=== PATIENT | male | born 1970 | race Caucasian/White ===

== ENCOUNTER 2017-08-30 22:37 | Emergency (ER) | payer OTHER | END 2017-08-30 23:02 | disposition home or self-care (01) | LOC: SCSER 22:37 | DX: S76.311A Strain of muscle, fascia and tendon of the posterior muscle group at thigh level, right thigh, initial encounter (principal); I10 Essential (primary) hypertension; J45.909 Unspecified asthma, uncomplicated; X50.1XXA Overexertion from prolonged static or awkward postures, initial encounter; Y93.67 Activity, basketball | CPT/HCPCS: 99283 ==

== ENCOUNTER 2019-04-27 10:43 | Emergency (ER) | payer OTHER ==
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
[2019-04-27] MEDS ORDERED: Ketorolac Tromethamine 30 MG/ML VIAL ONE (11:51)
== END 2019-04-27 12:19 | disposition home or self-care (01) ==
LOC: ERS 10:43
DX: S16.1XXA Strain of muscle, fascia and tendon at neck level, initial encounter (principal); V89.2XXA Person injured in unspecified motor-vehicle accident, traffic, initial encounter; J45.909 Unspecified asthma, uncomplicated; I10 Essential (primary) hypertension; F32.9 Major depressive disorder, single episode, unspecified; Z79.899 Other long term (current) drug therapy; Z79.51 Long term (current) use of inhaled steroids
CPT/HCPCS: 70450; 72125; 96374; J1885

== ENCOUNTER 2020-03-07 23:32 | Emergency (ER) | payer OTHER ==
[2020-03-08] MEDS ORDERED: Fluorescein Opthalmic Strip ONE
[2020-03-08] MEDS ORDERED: Proparacaine 0.5% Opth 15 ML BOT ONE
== END 2020-03-08 00:20 | disposition home or self-care (01) ==
LOC: ERS 23:32
DX: S05.01XA Injury of conjunctiva and corneal abrasion without foreign body, right eye, initial encounter (principal); J45.909 Unspecified asthma, uncomplicated; I10 Essential (primary) hypertension; F32.9 Major depressive disorder, single episode, unspecified; W22.8XXA Striking against or struck by other objects, initial encounter
CPT/HCPCS: 99283

== ENCOUNTER 2022-04-27 07:10 | Day surgery (SDC) | payer BC ==
[2022-04-26 10:55] VITALS: BMI 27.2
[2022-04-27] MEDS ORDERED: Fentanyl 100 MCG/2 ML VIAL ONE ×2 (08:14→11:49)
[2022-04-27] MEDS ORDERED: Midazolam HCl 2 mg/2 ml Vial ONE (08:14)
[2022-04-27] MEDS ORDERED: SUGAMMADEX SODIUM 200 MG/2 ML VIAL ONE (08:34)
[2022-04-27] MEDS ORDERED: fentaNYL Citrate/PF 100 MCG/2 ML SYRINGE ONE (08:34)
[2022-04-27] MEDS ORDERED: Sodium Chloride 0.9% 100 ML ONE (08:54)
[2022-04-27] MEDS ORDERED: CEFAZOLIN 2 GM VIAL ONE (08:54)
[2022-04-27] MEDS ORDERED: Vecuronium 10 MG VIAL ONE (09:07)
[2022-04-27] MEDS ORDERED: PROPOFOL 200 MG/20 ML VIAL ONE (09:07)
[2022-04-27] MEDS ORDERED: Lidocaine 1% MPF 2 ML VIAL ONE (09:07)
[2022-04-27] MEDS ORDERED: Ondansetron PF 4 MG/2 ML Vial ONE (09:07)
[2022-04-27] MEDS ORDERED: Dexamethasone 20 MG/5 ML VIAL ONE (09:07)
[2022-04-27] MEDS ORDERED: Ropivacaine 2% HCl/PF (20 MG/10 ML VIAL) ONE (09:07)
[2022-04-27] MEDS ORDERED: Ketorolac Tromethamine 30 MG/ML VIAL ONE (09:07)
[2022-04-27] MEDS ORDERED: Rocuronium Bromide 10 MG/ML (10ML VIAL) ONE (09:07)
[2022-04-27] MEDS ORDERED: NEOSTIGMINE 3 MG/3 ML SYR 3 MG/3 ML SYRINGE ONE (09:07)
[2022-04-27] MEDS ORDERED: Glycopyrrolate 0.2 MG/ML 5 ML SYRINGE ONE (09:07)
[2022-04-27] MEDS ORDERED: Ketorolac Tromethamine 30 MG/ML VIAL IVP PRN (09:30)
[2022-04-27] MEDS ORDERED: Ropivacaine 0.2% 550 ML 550 ML NERVE BLCK SCH (09:30)
[2022-04-27] MEDS ORDERED: Promethazine HCl 25 MG/ML VIAL IM PRN (09:30)
[2022-04-27] MEDS ORDERED: HYDROcodone/Acetaminophen 5/325 mg Tablet PO PRN ×2 (09:30)
[2022-04-27] MEDS ORDERED: Ondansetron PF 4 MG/2 ML Vial IVP PRN (09:30)
[2022-04-27] MEDS ORDERED: Zolpidem Tartrate 5 MG TAB PO PRN (09:30)
[2022-04-27] MEDS ORDERED: traMADol HCl 50 MG TAB PO PRN ×2 (09:30)
[2022-04-27] MEDS ORDERED: Bupivacaine HCl 0.5%/Epinephrine 1:200,000/PF 30 ml Vial ONE (09:32)
== END 2022-04-27 14:12 | disposition home or self-care (01) ==
LOC: SDC 07:10
PROVIDERS: ATTEND Orthopaedic Surgery
PROC: 0RHK04Z Insertion of Internal Fixation Device into Left Shoulder Joint, Open Approach (ICD-10-PCS; principal; 2022-04-27)
PROC: 0RNK4ZZ Release Left Shoulder Joint, Percutaneous Endoscopic Approach (ICD-10-PCS; principal; 2022-04-27)
PROC: 0LM24ZZ Reattachment of Left Shoulder Tendon, Percutaneous Endoscopic Approach (ICD-10-PCS; principal; 2022-04-27)
PROC: 3E0T3BZ Introduction of Anesthetic Agent into Peripheral Nerves and Plexi, Percutaneous Approach (ICD-10-PCS; principal; 2022-04-27)
PROC: 0LS40ZZ Reposition Left Upper Arm Tendon, Open Approach (ICD-10-PCS; principal; 2022-04-27)
DX: S46.012A Strain of muscle(s) and tendon(s) of the rotator cuff of left shoulder, initial encounter (principal); S46.212A Strain of muscle, fascia and tendon of other parts of biceps, left arm, initial encounter; M25.812 Other specified joint disorders, left shoulder; M25.312 Other instability, left shoulder; J45.909 Unspecified asthma, uncomplicated; I10 Essential (primary) hypertension; Z86.718 Personal history of other venous thrombosis and embolism; Z79.899 Other long term (current) drug therapy; X50.0XXA Overexertion from strenuous movement or load, initial encounter
CPT/HCPCS: A4306; C1713; J0690; J1100; J1885; J2250; J2405; J2704; J2795; J3010; J3490

== ENCOUNTER 2024-03-27 10:27 | Outpatient (CLI) | payer BC | END 2024-03-27 10:28 | disposition home or self-care (01) | LOC: SCSMRI 10:27 | PROVIDERS: ATTEND Orthopaedic Surgery | DX: S46.011A Strain of muscle(s) and tendon(s) of the rotator cuff of right shoulder, initial encounter (principal) ==

== ENCOUNTER 2024-06-17 15:38 | Outpatient (CLI) | payer BC ==
[2024-06-17 16:35] LABS: #Basophils 0.07 10x3/uL (0.0-0.2); %Basophils 0.8 % (0.0-1.0); %Lymphocytes 28.2 % (21.0-51.0); %Neutrophils 58.8 % (42.0-75.0); Hematocrit 46.7 % (42.0-52.0); Hemoglobin 16.6 g/dL (14.0-18.0); Mean Corpuscular HGB CONC 35.5 g/dL (32.0-36.0); Mean Corpuscular Hemoglobin 29.6 pg (27.0-31.0); Mean Corpuscular Volume 83.4 fL (78.0-98.0); Mean Platelet Volume 9.6 fL (7.4-10.4); Platelet Count 383 10x3/uL (130-400); RBC Distribution Width 12.2 % (11.5-14.5)
[2024-06-17 18:29] LABS: Anion Gap 16 mmol/L (10-20); BUN (Urea Nitrogen) 15 mg/dL (8.4-25.7); Calc. Creatinine Clearance 0 mL/min (70-130); Calcium 9.8 mg/dL (7.8-10.44); Carbon Dioxide 21 mmol/L (22-29); Chloride 104 mmol/L (98-107); Estimated GFR 91; Glucose 112 mg/dL (70-105); Potassium 3.3 mmol/L (3.5-5.1); Sodium 138 mmol/L (136-145)
== END 2024-06-17 15:39 | disposition home or self-care (01) ==
LOC: LABBT 15:38
PROVIDERS: ATTEND Orthopaedic Surgery
DX: Z01.818 Encounter for other preprocedural examination (principal); S46.011A Strain of muscle(s) and tendon(s) of the rotator cuff of right shoulder, initial encounter
CPT/HCPCS: 80048; 85025; 93005; 93010

== ENCOUNTER 2024-06-21 08:56 | Day surgery (SDC) | payer BC ==
[2024-06-17 15:47] VITALS: BMI 27.2
[2024-06-21] MEDS ORDERED: fentaNYL 50 mcg/mL 1 mL Vial ONE (10:05)
[2024-06-21] MEDS ORDERED: Midazolam HCl 2 mg/2 ml Vial ONE (10:05)
[2024-06-21] MEDS ORDERED: Lidocaine 1% (PF) 30 ML VIAL ONE (10:07)
[2024-06-21] MEDS ORDERED: CEFAZOLIN 2 GM VIAL ONE (10:07)
[2024-06-21] MEDS ORDERED: Ropivacaine 0.5% HCl/PF (150 MG/30 ML VIAL) ONE (10:35)
[2024-06-21] MEDS ORDERED: Ondansetron PF 4 MG/2 ML Vial IVP PRN (11:00)
[2024-06-21] MEDS ORDERED: Ropivacaine 0.2% 550 ML 550 ML NERVE BLCK SCH (11:00)
[2024-06-21] MEDS ORDERED: Zolpidem Tartrate 5 MG TAB PO PRN (11:00)
[2024-06-21] MEDS ORDERED: Promethazine HCl 25 MG/ML VIAL IM PRN (11:00)
[2024-06-21] MEDS ORDERED: PROPOFOL 20 ML ONE (11:49)
[2024-06-21] MEDS ORDERED: Ondansetron PF 4 MG/2 ML Vial ONE (11:50)
[2024-06-21] MEDS ORDERED: Rocuronium Bromide 10 MG/ML (10ML VIAL) ONE (11:50)
[2024-06-21] MEDS ORDERED: Lidocaine 1% PF 5 ML VIAL ONE (11:50)
[2024-06-21] MEDS ORDERED: Bupivacaine 0.25% HCL 30 ML VIAL ONE (11:59)
[2024-06-21] MEDS ORDERED: EPINEPHrine 1 MG/ML VIAL ONE (11:59)
[2024-06-21] MEDS ORDERED: ePHEDrine Sulfate 50 MG/10 ML VIAL ONE (12:38)
[2024-06-21] MEDS ORDERED: Vasopressin 20 UNITS/ML VIAL ONE (12:42)
[2024-06-21] MEDS ORDERED: SUGAMMADEX SODIUM 200 MG/2 ML VIAL ONE (13:45)
[2024-06-21] MEDS ORDERED: Meperidine HCl/PF 25 MG (1 mL) VIAL ONE (14:02)
[2024-06-21] MEDS ORDERED: HYDROmorphone 0.5 MG/0.5 ML SYRINGE ONE ×2 (14:12→14:27)
[2024-06-21] MEDS ORDERED: fentaNYL PF 100 MCG/2 ML SYRINGE ONE (14:27)
== END 2024-06-21 15:34 | disposition home or self-care (01) ==
LOC: SDC 08:56
PROVIDERS: ATTEND Orthopaedic Surgery
PROC: 3E0T3BZ Introduction of Anesthetic Agent into Peripheral Nerves and Plexi, Percutaneous Approach (ICD-10-PCS; principal; 2024-06-21)
PROC: 0RNJ4ZZ Release Right Shoulder Joint, Percutaneous Endoscopic Approach (ICD-10-PCS; principal; 2024-06-21)
PROC: 0LS30ZZ Reposition Right Upper Arm Tendon, Open Approach (ICD-10-PCS; principal; 2024-06-21)
DX: S46.011A Strain of muscle(s) and tendon(s) of the rotator cuff of right shoulder, initial encounter (principal); I10 Essential (primary) hypertension; I82.402 Acute embolism and thrombosis of unspecified deep veins of left lower extremity; J45.909 Unspecified asthma, uncomplicated; K21.9 Gastro-esophageal reflux disease without esophagitis; Z85.828 Personal history of other malignant neoplasm of skin; Z90.49 Acquired absence of other specified parts of digestive tract; Z98.890 Other specified postprocedural states; Z79.51 Long term (current) use of inhaled steroids; Z79.899 Other long term (current) drug therapy; X58.XXXA Exposure to other specified factors, initial encounter
CPT/HCPCS: A4306; C1713; C1894; J0171; J0665; J2175; J2250; J2405; J2704; J2795; J3010